=== PATIENT | female | born 1980 | race Caucasian/White ===

== ENCOUNTER 2018-04-19 08:00 | Emergency (ER) | payer BC ==
[~2018-04-19] VITALS: Ht 160 cm; Wt 103.0 kg
[~2018-04-19 08:00] MED LIST: FLAGYL500 MG PO; IBUPROFEN 800800 M1 PO; PHENTERMINE HCL15 MG PO; PROTONIX40 M1 PO; PROZAC20 MG PO; VIBRAMYCIN 100100 MG PO
[2018-04-19] MEDS ORDERED: ASPIRIN325 PO (08:05)
[2018-04-19] MEDS ORDERED: ATORVASTATIN CA40 MG PO (08:05)
[2018-04-19 08:32] LABS: ABSOLUTE EOSINOPHILS 0.2 thou/uL (0.0-0.7); ABSOLUTE LYMPHOCYTES 1.3 thou/uL (0.8-5.3); ABSOLUTE MONOCYTES 0.4 thou/uL (0.0-1.2); ABSOLUTE NEUTROPHILS 6.5 thou/uL (1.6-8.1); BASOPHILS 0.5 %; EOSINOPHILS 2.5 %; HEMATOCRIT 43.2 % (37.0-47.0); HEMOGLOBIN 14.6 gm/dL (12.0-15.0); LYMPHOCYTES 15.1 %; MCH 30.3 pg (26.0-34.0); MCHC 33.8 g/dL (28.0-37.0); MCV 89.5 fL (80.0-100.0); MONOCYTES 4.8 %; MPV 7.9 fl. (7.2-11.1); NUCLEATED RBCS 0 /100WBC; PLATELET COUNT* 218 thou/uL (150-400); POLYS 77.1 %; RBC 4.83 mil/uL (4.20-5.00); RDW-CV 13.4 % (10.5-14.5); WBC 8.5 thou/uL (4.0-11.0)
[2018-04-19 08:50] LABS: ANION GAP 6 mmol/L (7-16); BUN 9 mg/dL (7-18); CALCIUM 8.6 mg/dL (8.5-10.1); CHLORIDE 106 mmol/L (98-107); CO2 28 mmol/L (21-32); CREATININE 0.8 mg/dL (0.6-1.3); GLUCOSE 108 mg/dL (70-99); POTASSIUM 3.6 mmol/L (3.5-5.1); SODIUM 140 mmol/L (136-145)
[2018-04-19 08:54] LABS: APTT 27.8 Seconds (25.0-31.3); PROTIME 10.2 Seconds (9.20-11.50)
[2018-04-19 09:08] VITALS: BP 145/70
[2018-04-19 09:20] LABS: ALBUMIN 3.5 g/dL (3.4-5.0); ALKALINE PHOSPHATASE 75 U/L (46-116); CK-MB MASS 2.4 ng/mL (<0.5-3.6); LIPASE 81 U/L (73-393); MAGNESIUM 1.9 mg/dL (1.8-2.4); NT-PRO BRAIN NAT PEPTIDE 116 pg/mL (<300); SGOT 18 U/L (15-37); SGPT 27 U/L (30-65); TOTAL BILIRUBIN 0.3 mg/dL (<0.1-1.0); TOTAL PROTEIN 6.9 g/dL (6.4-8.2); TROPONIN-I LEVEL <0.06 ng/mL (<0.06)
--- NOTE | 2018-04-19 17:01 | EKG ---
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 : 1980 Requested By: Mauricio Rocha Order Number: [id number] MD: Ludwin Cedeno Measurements Intervals [place] Rate: 65 P: 31 MI: 128 QRS: 61 QRSD: 102 T: 44 QT: 402 QTc: 418 Interpretive Statements Sinus rhythm Borderline low voltage, extremity leads Baseline wander in lead(s) II Compared to ECG 10/16/2014 09:54:49 No significant changes Electronically Signed On 04-19-2018 17:01:06 CDT by Ludwin Cedeno [email or web address] <ELECTRONICALLY SIGNED> By: Ludwin Cedeno MD, [facility] 04/19/18 1701 D: [id number] Ludwin Cedeno MD, FACC /EPI
== END 2018-04-19 09:30 | disposition home or self-care (01) ==
LOC: M.ERS 08:00
PROVIDERS: Family Medicine
DX: F41.9 Anxiety disorder, unspecified (principal); F17.210 Nicotine dependence, cigarettes, uncomplicated; Z88.6 Allergy status to analgesic agent; Z88.4 Allergy status to anesthetic agent; Z88.2 Allergy status to sulfonamides; Z88.8 Allergy status to other drugs, medicaments and biological substances